=== PATIENT | male | born 1975 | race Two or more races ===

== ENCOUNTER 2020-07-24 13:16 | Emergency (ER) | payer OTHER ==
[~2020-07-24] VITALS: Ht 175.3 cm; Wt 81.6 kg
--- NOTE | 2020-07-24 15:11 | Diagnostic Imaging Report ---
Indication: Knee pain status post injury Technique: XRAY Knee Compl 4v+ L Comparison: None Findings: Bony mineralization within normal limits. No acute fracture or dislocation is identified. No significant suprapatellar joint effusion. No radiopaque foreign body. Impression: No acute fracture or dislocation.
[2020-07-24] MEDS ORDERED: NAPROXEN500 M1 ORAL (15:28)
--- NOTE | 2020-07-24 15:39 | Emergency Room Report ---
History of Present Illness General Chief Complaint: General Complaint Source: Patient Present Illness HPI Disclaimer: Please note that this report is being documented using [employer] technology. This can lead to erroneous entry secondary to incorrect interpretation by the dictating instrument. HPI: 45-year-old male presents secondary to left knee pain. He was struck in the left knee approximately 2 weeks ago at work. He states that a metal plate struck his left knee while he was climbing down a ladder. Since that time he has had left knee pain worse with prolonged standing or bending. He is able to ambulate. He is not been taking any medications. His knee was initially swollen but that has improved. He denies any history of knee injury in the past. His injury occurred while at work. 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 Patient History Reviewed Nursing Documentation: PMH: Agreed; PSxH: Agreed Nursing Documentation-PMH Past Medical History: No Stated History Review of Systems All Other Systems: negative except mentioned in HPI Physical Exam Vital Signs Date Time Temp Pulse Resp B/P (MAP) Pulse Ox O2 Delivery O2 Flow Rate FiO2 07/24/20 14:00 98.4 86 18 130/80 (97) 98 Room Air Sp02 EP Interpretation: reviewed, normal General Appearance: well appearing, no apparent distress Head: normocephalic, atraumatic Eyes: bilateral eye PERRL, bilateral eye EOMI ENT: hearing grossly normal, moist mucus membranes Neck: full range of motion, supple Respiratory: lungs clear, normal breath sounds, no rhonchi, no respiratory distress, no retraction, no wheezing Cardiovascular #1: normal peripheral pulses, regular rate, rhythm, no murmur Gastrointestinal: non tender, soft, non-distended, no guarding Musculoskeletal: other - Left knee mildly tender along medial aspect. Full range of motion, no deformity, sensation intact, pulses intact throughout. Neurologic: alert, oriented x3, no focal defects Skin: normal color, warm/dry Medical Decision Making Diagnostic Impression: Primary Impression: Contusion of left knee ER Course Differential diagnosis included but not limited to contusion, ligamentous strain, less likely fracture or dislocation. On exam patient had mild medial tenderness. He was ambulatory. X-ray ordered showed no acute fracture or dislocation. Patient was wearing an elastic wrap on arrival. I encouraged to continue to wear the compression. Prescribed anti-inflammatories. Recommended follow-up with orthopedics via [employer]. Did recommend modified work with no prolonged standing or heavy lifting until improved. Otherwise nontoxic no acute distress stable for discharge. Last Vital Signs Date Time Temp Pulse Resp B/P (MAP) Pulse Ox O2 Delivery O2 Flow Rate FiO2 07/24/20 14:00 98.4 86 18 130/80 (97) 98 Room Air Disposition: HOME, SELF-CARE Condition: Stable Scripts Naproxen* (NAPROXEN*) 500 Mg Tablet. 500 MG ORAL TWICE A DAY PRN for For Pain, #60 TAB Prov: Desean Poole M.D. 07/24/20 Patient Instructions: Knee Pain, [id number] Additional Instructions: Patient is instructed to follow-up with her primary care doctor, primary care clinic or Worker's [facility]. clinic in 1 to 2 days. I discussed referral to orthopedics via Work[employer]. . Patient instructed to return for any worsening symptoms or concerns. Desean Poole M.D. Jul 24, 2020 15:39
[2020-07-24 16:08] VITALS: BP 130/80
--- NOTE | 2020-07-24 16:30 | NUR ---
came to er complaints of left knee injury today at work waiting for md petersen
--- NOTE | 2020-07-24 17:13 | NUR ---
x-rays completed copies of x-ray given to patient discharged home with instructionand rx follow up with work comp
[2020-07-24 17:15] VITALS: BP 130/80
== END 2020-07-24 17:16 | disposition home or self-care (01) ==
LOC: EMR 14:40
DX: S80.02XA Contusion of left knee, initial encounter (principal); W22.8XXA Striking against or struck by other objects, initial encounter; Y92.9 Unspecified place or not applicable
CPT/HCPCS: 99283